=== PATIENT | female | born 1995 | race African-American/Black ===

== ENCOUNTER 2016-06-20 15:59 | Emergency (ER) | payer OTHER ==
[2016-06-20 15:45] LABS: URINE SOURCE CLEAN CATCH
[2016-06-20 15:51] LABS: URINE APPEARANCE CLEAR; URINE BILIRUBIN NEG (NEG); URINE BLOOD NEG (NEG); URINE COLOR YELLOW; URINE GLUCOSE 100 MG/DL (NEG); URINE KETONE NEG (NEG); URINE LEUKOCYTE ESTERASE NEG (NEG); URINE NITRATE NEG (NEG); URINE PROTEIN NEG (NEG); URINE SPECIFIC GRAVITY 1.012 (1.003-1.035); URINE UROBILINOGEN 0.2 MG/DL (NEG)
[2016-06-20 16:08] LABS: CULTURE INDICATED? NO
[2016-06-24 09:10] LABS: CHLAMYDIA TRACH Not Detected (Not Detected); N GONOR Not Detected (Not Detected)
== END 2016-06-20 17:03 | disposition home or self-care (01) ==
LOC: CFTX 15:59
PROVIDERS: Physician Assistant
DX: R10.2 Pelvic and perineal pain (principal); F17.210 Nicotine dependence, cigarettes, uncomplicated; Z88.0 Allergy status to penicillin
CPT/HCPCS: 36415; 81003; 82947; 84703; 86695; 86696; 87491; 87591; 87808; 87905; 99284